=== PATIENT | male | born 1990 | race Caucasian/White ===

== ENCOUNTER → 2016-08-31 | Day surgery (SDC) | payer OTHER ==
[~2016-08-31] VITALS: Ht 185.4 cm; Wt 124.7 kg
[~2016-08-31] MED LIST: CHLOROPROCAINE PRES. FREE 3% INJ 20 ML VIAL (J2400) As Ordered ONE; LEVO137T2 PO; LIDOCAINE 2% INJ 100 MG/5 ML SDV (FOR ANES.) As Ordered ONE; LR 1,000 ML IV SCH; MIDAZOLAM INJ 2 MG/2 ML VIAL (J2250) As Ordered ONE; NORCO, ANEXSIA 5/325MG TABLET (HYDROcodone/ACETAMINOPHEN) PO PRN; ONDANSETRON 4MG/2ML VIAL (J2405) IV PRN; PROPOFOL 200 MG/20 ML VIAL As Ordered ONE; fentaNYL 100 MCG/2 ML INJECTION (J3010) As Ordered ONE
[2016-08-31] MEDS: fentaNYL 100 MCG/2 ML INJECTION (J3010) IV PRN ×2 (15:10→15:19)
[2016-08-31] MEDS: PERCOCET 5MG/325MG TAB PO PRN ×2 (15:40→16:15)
[2016-08-31 17:40] VITALS: BP 129/69
--- NOTE | 2016-09-01 08:28 | RO ---
DATE OF PROCEDURE: 08/31/2016 PREOPERATIVE DIAGNOSIS: Pilonidal cyst. POSTOPERATIVE DIAGNOSIS: Pilonidal cyst. PROCEDURE: Pilonidal cystectomy. SURGEON: Dr. Vega Edmondson. DIRECTOR OF CUSTOMER ACQUISITION: None. ANESTHESIA: IV sedation with spinal. COMPLICATIONS: 5. INDICATIONS FOR PROCEDURE: The patient is a 26-year-old male presents with a history of a pilonidal cyst that has been recurrent. Recommendation was to proceed with pilonidal cystectomy. Risks and benefits of the procedure not limited to but including bleeding, infection, need for further surgery and possible cyst recurrence were discussed in detail with the patient. Informed was obtained. Procedure was planned. PROCEDURE: The patient brought back to operating room three. After spinal sedation, he was placed in prone jackknife position on the bed. Next the perineum and sacral area were sterilely prepped and draped with betadine. Following that, time out was done to confirm proper patient and proper procedure. Next a 6 cm elliptical incision was created around the openings in the midline. Electrocautery was used to carefully dissect circumferentially around the pilonidal cyst and the sinus tract all the way down to the presacral fascia. The cyst was then removed intact. Electrocautery was used to control hemostasis in the wound bed. Once this was completed, the wound was packed with wet-to-dry dressing with saline and prep gauze, covered with dry gauze and tape. The patient was then awakened from anesthesia and sent to postanesthesia care unit in stable condition.
== END | disposition home or self-care (01) ==
LOC: M SDC 08:05
PROVIDERS: ATTEND Surgery
DX: L05.91 Pilonidal cyst without abscess (principal); E03.9 Hypothyroidism, unspecified; F41.9 Anxiety disorder, unspecified; F32.9 Major depressive disorder, single episode, unspecified; Z79.899 Other long term (current) drug therapy
CPT/HCPCS: 11770; 88304; J0690; J2250; J2400; J3010

== ENCOUNTER → 2017-08-25 | Outpatient (REF) | payer OTHER ==
[2017-08-25 16:45] LABS: TESTOSTERONE 409 NG/DL (241-827)
[2017-08-30 00:06] LABS: TESTOSTERONE %FREE+WEAKLY BOUN 27.5 % (9.0-46.0); TESTOSTERONE FREE+WEAKLY BOUND 111.1 ng/dL (40.0-250.0); TESTOSTERONE TOTAL 404 ng/dL (264-916)
== END ==
LOC: M LABDRAW1 15:48
DX: N52.9 Male erectile dysfunction, unspecified (principal)